=== PATIENT | male | born 1960 | race Caucasian/White ===

== ENCOUNTER → 2020-02-23 13:31 | Outpatient (BNVA) | payer OTHER, SELFPAY | PROVIDERS: Family Provider Nurse Practitioner Family; PCP Nurse Practitioner Family; Referring Provider Nurse Practitioner Family; Visit Provider Dermatology | DX: R21 Rash and other nonspecific skin eruption (principal); F17.210 Nicotine dependence, cigarettes, uncomplicated | CPT/HCPCS: 11102; 88304; 99203 ==

== ENCOUNTER → 2025-05-04 09:59 | Outpatient (BNVA) | payer OTHER, SELFPAY | PROVIDERS: Family Provider Nurse Practitioner Family; PCP Nurse Practitioner Family; Visit Provider Orthopaedic Surgery | DX: M48.02 Spinal stenosis, cervical region (principal) | CPT/HCPCS: 72050 ==

== ENCOUNTER 2025-05-09 09:07 | Outpatient (CLI) | payer OTHER, SELFPAY ==
--- NOTE | 2025-05-09 09:30 | MR_ITS ---
WS: [id number] MRI CERVICAL SPINE NONCONTRAST TECHNIQUE: Sagittal T1, T2 and STIR imaging. Axial T2, gradient, and fiesta imaging. CLINICAL INFORMATION: neck pain COMPARISON: None. FINDINGS: Straightening of the normal cervical lordosis. Moderate spondylitic changes. Disc space narrowing throughout the cervical spine. Cord signal is normal. C2-C3: Moderate LEFT bony foraminal narrowing. LEFT facet synovitis. C3-C4: Disc osteophyte complex with endplate ridging. Moderate central canal stenosis. Slight indentation of the cervical cord. Moderate to severe bony foraminal narrowing. Moderate facet arthropathy. C4-C5: Grade 1 anterolisthesis. Moderate central canal stenosis. Slight indentation on the cervical cord. Moderate LEFT greater than RIGHT bony foraminal narrowing. Moderate facet arthropathy. C5-C6: Disc osteophyte complex with central protrusion. Indentation of the cervical cord with moderate central canal stenosis. Mild to moderate bilateral bony foraminal narrowing. C6-C7: Severe LEFT greater than RIGHT bony foraminal narrowing. Spinal canal is patent. C7-T1: Moderate to severe bilateral bony foraminal narrowing. Spinal canal is patent. Visualized brain stem structures: Normal. Prevertebral soft tissues: Normal. MR/MR cervical spin wo con* [id number] IMPRESSION: 1. Straightening the normal cervical lordosis with moderate to advanced spondy litic changes. Slight anterolisthesis C4 on C5. 2. LEFT facet synovitis C2-3 with periarticular edema. 3. Moderate central canal stenosis C3-C4 C4-C5 and C5-C6 with small disc osteo phyte protrusions and slight indentation on the cervical cord. 4. Moderate LEFT C2-3 bony foraminal narrowing. 5. Moderate to severe bony foraminal narrowing bilateral C3-4, moderate bilate ral C4-5, mild to moderate bilateral C5-6, severe LEFT greater than RIGHT C6-7, and moderate bilateral C7-T1
== END 2025-05-09 09:08 | disposition home or self-care (01) ==
LOC: RAD 09:09
PROVIDERS: Family Provider Nurse Practitioner Family; PCP Nurse Practitioner Family; Visit Provider Orthopaedic Surgery
DX: M48.02 Spinal stenosis, cervical region (principal); M99.61 Osseous and subluxation stenosis of intervertebral foramina of cervical region; M43.12 Spondylolisthesis, cervical region; M99.62 Osseous and subluxation stenosis of intervertebral foramina of thoracic region
CPT/HCPCS: 72141

== ENCOUNTER 2025-05-30 10:50 | Emergency (ER) | payer MEDICARE, SELFPAY ==
--- OUTSIDE RECORDS SUMMARY | 2025-05-26 08:30 | XMS_ITS | Encounter Summary ---
Author Organization [facility], [facility] Address [address] [facility] [address] [place] [address] Phone Care Team Providers Care Rounder And Backer Name Role Phone Angelika Couch JAMARCUS Primary Care Provider [phone] Reason for Visit * Reason Comments Chronic Kidney Disease 3 mo follow up Encounter Details Date Type Department Care Team (Late st Contact Info) Description 05/26/2025 8:30 AM POLYSOMNOGRAPHIC TECH Office Visit [facility] [address] [place] [address] Mara Collins BLOCK FEEDER [address] [facility] [address] [place] [address] Stage 3b chronic kidney disease (HCC) (Primary Dx); Hypertensive chronic kidney disease with stage 1 through stage 4 chronic kidney disease, or unspecified chronic kidney disease; Acute nontraumatic kidney injury, not otherwise specified (HCC) Social History Tobacco Use Types Packs/Day Years Used Date Smoking Tobacco: Every Day Cigarettes 1 65 Passive Smoke Exposure: Current Smokeless Tobacco: Never Alcohol Use Standard Drinks/Week Comments Never 0 (1 standard drink = 0.6 oz pur e alcohol) Sex and Gender Information Value Date Recorded Sex Assigned at Not on file Legal Sex Male 11:40 AM EDT Gender Identity Not on file Sexual Orientation Not on file documented as of this encounter Last Filed Vital Signs Vital Sign Reading Time Taken Comments Blood Pressure 146/94 05/26/2025 8:38 AM POLYSOMNOGRAPHIC TECH Pulse 99 05/26/2025 8:38 AM POLYSOMNOGRAPHIC TECH Temperature - - Respiratory Rate - - Oxygen Saturation 95% 05/26/2025 8:38 AM POLYSOMNOGRAPHIC TECH Inhaled Oxygen Concentration - - Weight 98.4 kg (217 lb) 05/26/2025 8:38 AM POLYSOMNOGRAPHIC TECH Height 170.2 cm (5' 7 ) 05/26/2025 8:38 AM POLYSOMNOGRAPHIC TECH Body Mass Index 33.99 05/26/2025 8:38 AM POLYSOMNOGRAPHIC TECH documented in this encounter Functional Status * BP Answer Date of Assessment Author 146/94 05/26/2025 8:38 AM Diaz, RENT CONTROL OFFICE MANAGER * Pulse Answer Date of Assessment Author 99 05/26/2025 8:38 AM EST Michel, RENT CONTROL OFFICE MANAGER * SpO2 Answer Date of Assessment Author 95 05/26/2025 8:38 AM EST Nogueira N, RENT CONTROL OFFICE MANAGER * Height Answer Date of Assessment Author 67 05/26/2025 8:38 AM EST Nogueira N, RENT CONTROL OFFICE MANAGER * Weight Answer Date of Assessment Author 3472 05/26/2025 8:38 AM Aguilar N, RENT CONTROL OFFICE MANAGER * BMI (Calculated) Answer Date of Assessment Author 34 05/26/2025 8:38 AM Diaz, RENT CONTROL OFFICE MANAGER * BP Location Answer Date of Assessment Author Left upper arm 05/26/2025 8:38 AM EST Nogueira N, RENT CONTROL OFFICE MANAGER * BP Answer Date of Assessment Author 146/94 05/26/2025 8:38 AM Diaz, RENT CONTROL OFFICE MANAGER * Height Answer Date of Assessment Author 67 05/26/2025 8:38 AM Aguilar N, RENT CONTROL OFFICE MANAGER * Weight Answer Date of Assessment Author 3472 05/26/2025 8:38 AM Diaz, RENT CONTROL OFFICE MANAGER * BMI (Calculated) Answer Date of Assessment Author 34 05/26/2025 8:38 AM Aguilar N, RENT CONTROL OFFICE MANAGER * BP Location Answer Date of Assessment Author Left upper arm 05/26/2025 8:38 AM Diaz, RENT CONTROL OFFICE MANAGER documented as of this encounter Patient Instructions * Patient Instructions* Mara Collins NP - 05/26/2025 8:30 AM POLYSOMNOGRAPHIC TECH General chronic kidney disease education: You have chronic kidney disease, for additional information, look at the the National Kidney Foundation Internet site at www.kidney.org. Avoid pain medications called nonsteroidal anti-inflammatory drugs, which can raise blood pressure and harm your kidneys. These include ibuprofen and naproxen. Glucosamine and acetaminophen, also called Tylenol, are safe for you. Make sure to update your immunizations for influenza and 13 as well as 23 Valent pneumococcus with your primary care physician. Blood pressure monitoring education: Monitor home blood pressure values after sitting for 5 minutes with back and arm support. Keep a log. Bring your log and blood pressure cuff to your next visit. Sodium and Your CKD Diet: How to Spice Up Your Cooking What is sodium? Sodium is a mineral found naturally in foods and is the major part of table salt. What are the effects of eating too much sodium? When your kidneys are not healthy, extra sodium and fluid build up in your body. This can cause swollen ankles, puffiness, a rise in blood pressure, shortness of breath, and/or fluid around your heart and lungs. See the following table for suggestions on how to reduce sodium in your diet. LIMIT THE [AMOUNT OF... FOOD TO LIMIT BECAUSE OF THEIR HIGH SODIUM CONTENT ACCEPTABLE SUBSTITUTES SALT & SALT SEASONINGS Table salt Seasoning salt Garlic salt Onion salt Celery salt Lemon pepper Lite salt Meat tenderizer Bouillon cubes Flavor enhancers Fresh garlic, fresh onion, garlic powder, onion powder, black [pepper, lemon juice, low-sodium/salt-free seasoning blends, vinegar SALTY FOODS Barbecue sauce Steak sauce Soy sauce Teriaky sauce Oyster sauce Salted Snacks such as Crackers Potato chips [place] chips Pretzels Tortilla chips Nuts Popcorn Cadwell seeds Homemade or low- sodium sauces and salad dressings; Vinegar, dry mustard, unsalted popcorn, pretzels, tortilla or corn chips Cured Foods Ham Salt pork Vazquez Sauerkraut Pickles, pickle relish Lox & [place]mond Olives Fresh beef, veal, pork, poultry, fish, eggs [place] MEATS Hot Dogs Cold cuts, deli meats Pastrami Sausage Corned beef Spam Low-salt deli meats PROCESSED FOODS Buttermilk Cheese Canned: Soups Tomato products Vegetable juices Canned vegetables Convenience Foods such as: TV Dinners Canned raviolis [place] Macaroni & Cheese Spaghetti Frozen prepared foods Fast foods Natural cheese (1-2 oz Per week) Homemade or harry,1- sodium soups, canned food without added salt Homemade casseroles without added salt, made with fresh or raw vegetables, fresh meat, dominik, pasta, or unsalted canned vegetables Some salt or sodium is needed for body water balance. But when your kidneys lose the ability to control sodium and water balance, you may experience the following: thirst fluid gain high blood pressure discomfort during dialysis By using less sodium in your diet, you can control these problems. Hints to keep your sodium intake down Cook with herbs and spices instead of salt. (Refer to Spice Up Your Cooking section for further suggestions.) Read food labels and choose those foods low in sodium. Avoid salt substitutes and specialty low-sodium foods made with salt substitutes because they are high in potassium. When eating out, ask for meat or fish without salt. Ask for gravy or sauce on the side; these may contain large amounts of salt and should be used in small amounts . Limit use of canned, processed and frozen foods. Some information about reading labels Understanding the terms: Sodium Free - Only a trivial amount of sodium per serving. Very Low Sodium - 35 mg or less per serving. Low Sodium - 140 mg or less per serving. Reduced Sodium - Foods in which the level of sodium is reduced by 25%. Light or Lite in Sodium - Foods in which the sodium is reduced by at least 50% . Simple rule of thumb : If salt is listed in the first five ingredients, the item is probably too high in sodium to use. All food labels now have milligrams (mg) of sodium listed. Follow these steps when reading the sodiwn information on the label: 1. Know how much sodium you are allowed each day. Remember that there are 1000 milligrams (mg) in 1gram. For [id number], if your diet prescription is 2 grams of sodium , your limit is 2000 milligrams per day. Consider the sodium value or other food to be eaten during the day. 2. Look at the package label. Check the serving size. Nutrition values are expressed per irma g. How does this compare to your total daily allowance? If the sodium level is 500 mg or more per serving, the item is not a good choice. 3. Compare labels of similar products. Select the lowest sodium level for the same serving size. How to Spice Up Your Cooking Giving up salt does not mean giving up flavor. Learn to season your food with herbs and spices. Be creative and experiment for a new and exciting flavor. What kinds of spices and herbs should I use instead of salt to add flavor? Try the following spices with the foods listed. Allspice: Use with beef, fish, beets, cabbage, canots, peas, fruit. Basil: Use with beef, pork, most vegetables. Grady [place]: Use with beef, pork, most vegetables. Jaron: Use with beef, pork, green beans, cauliflower, cabbage, beets, asparagus, and in dips and marinades. Cardamom: Use with fruit and in baked goods. Melgar: Use with beef, chicken, pork, fish, green beans, carrots and in marinades. Dill: Use with beef, chicken, green beans, cabbage, carrots, peas and in dips. Shaina: Use with beef, chicken, pork, green beans, cauliflower and eggplant. Marjoram: Use with beef, chicken, pork, green beans, cauliflower and eggplant. Marychuy: Use with chicken, pork, cauliflower, peas and in marinades. Thyme: Use with beef, chicken, pork, fish, green beans, beets and carrots. John: Use with chicken, pork, eggplant and in dressing. Tarragon: Use with fish, chicken, asparagus, beets, cabbage, cauliflower and in marinades. Tips for cooking with herbs and spices Purchase spices and herbs in small amounts . When they sit on the shelf for years they lose their flavor. Use no more than ?? teaspoon of dried spice (?? of fresh) per pound of meat. Add ground spices to food about 15 minutes before the end of the cooking period. Add whole spices to food at least one hour before the end of the cooking period. Combine herbs with oil or butter, set for 30 minutes to bring out their flavor, then brush on foodswhile they cook, or brush meat with oil and sprinkle herbs one hour before coolcing. Crush dried herbs before adding to foods. Can I use salt substitutes? Caution! If you are told to limit potassium in your diet, be very cautious about using salt substitutes because most of them contain some form of potassium. Check with your doctor or dietitian beforeusing and salt substitute. [place] and create your own seasoning containing those spices that you like. If you would like to become a volunteer and find out more about what's happening where you live, contact your local [facility]. Contrast education: IV contrast can cause temporary, and occasionally permanent, kidney failure. Most cases improve on their own, but occasionally people are left on dialysis. If you have IV contrast, you should get IV fluid before and after. You should also have labs checked 2 days after the test to monitor kidney function. No NSAIDS - Do not take non-steroidal anti-inflammatory medications (NSAIDS) such as Ibuprofen (Advil, Motrin, etc), Naproxen (Aleve, etc), Celecoxib (Celebrex) or Ketoprofen. These common arthritis medications can cause permanent kidney damage or worsen your kidney damage. For mild occasional pain, Acetaminophen (Tylenol, etc) is safe for your kidneys. documented in this encounter Progress Notes * Mara Collins NP - 05/26/2025 8:30 AM CSTSummary: follow up Images from the original note were not included. [facility] Chief Complaint: Follow up on CKD Primary Server Support Technician: Anjum Matamoros MD PCP: Angelika Couch FNP Nephrology Problem List: Chronic kidney disease stage 3bA3- Cr 1.4-1.9 2023. Renal US 2023 simple cyst on left. UA neg for blood. SPEP without M spike in 02/22. PATRICIA 09/2023, creatinine up to 2.9, states hypotensive and dehydrated Hypertension long standing-periods of hypotension Chronic tobacco use, 1ppd for many years Atopic dermatitis, he is on Rinvoq-on hold 05/25 due to acute kidney injury. History of Present Illness: Gustavo Silvestre is a 64 y.o. male here today for follow up on CKD and associated medical conditions. He was last seen in January 2025 with GFR of 46 and now at 20. Received labs last week with cr up to 3.25 with BUN of 64. Cr over the past year has been 1.4-2.0. We had him hold spironolactone and lisinopril. He has been having severe neck pain; PCP working up with CT/MRI. CT was without contrast.He is scheduled to have follow up next week. He is not using NSAID's. He did have several doses of prednisone. He states has not been eating or drinking well due to pain. Laid in bed for 4 days and did not eat or drink. UOP was reduced last week. He reports better this week. Did not pay attention to color. Dermatology holding Rinvoq due to acute kidney injury as well. He had repeat labs on Thursday, results not yet back. BP is mildly elevated today but had been running lower at home when we spoke with last week. He still smokes 1 PPD, not ready to quit. Weight is stable. No increase in LE edema or shortness of breath since holding aldactone. No difficulty voiding. Past Medical History: Diagnosis Date Anxiety Benign prostatic hyperplasia without lower urinary tract symptom Chronic airway obstruction, not elsewhere classified (HCC) Essential hypertension Osteoarthrosis, unspecified whether generalized or localized, involving unspecified site Social History Socioeconomic History Marital status: Single Spouse name: Not on file Number of children: Not on file Years of education: Not on file Highest education level: Not on file Occupational History Not on file Tobacco Use Smoking status: Every Day Current packs/day: 1.00 Average packs/day: 1 pack/day for 65.0 years (65.0 ttl pk-yrs) Types: Cigarettes Passive exposure: Current Smokeless tobacco: Never Vaping Use Vaping status: Never Used Substance and Sexual Activity Alcohol use: Never Drug use: Never Sexual activity: Not on file Other Topics Concern Lives Alone No Spouse No Significant Other No Family Member Yes Comment: Sister Hydraulic Miner No Assisted Living Facility No Impairment No Memory Deficit No Hearing Loss No Poor Vision or Blindness No Limited Mobility No Transportation Challenges No Social History Narrative Not on file Social Drivers of Health Financial Resource Strain: Not on file Food Insecurity: Not on file Transportation Needs: Not on file Physical Activity: Not on file Stress: Not on file Social Connections: Not on file Intimate Partner Violence: Not on file Housing Stability: Not on file Family History Problem Relation Age of Onset Hypertension Mother Hypertension Father Throat cancer Father Review of Systems: Constitutional: Negative for chills, fever and malaise/fatigue. Respiratory: Positive for cough (intermittent) and shortness of breath (intermittent, about the same as always ). Cardiovascular: Negative for chest pain and leg swelling. Gastrointestinal: Negative for abdominal pain, diarrhea, nausea, vomiting and poor appetite. Genitourinary: Negative for dysuria, flank pain and hematuria. Musculoskeletal: Positive for neck pain. Negative for myalgias. Skin: Negative for rash. Neurological: Negative for dizziness and focal weakness. Psychiatric/Behavioral: The patient is not nervous/anxious. No Known Allergies Current Outpatient Medications: albuterol HFA (PROVENTIL HFA;VENTOLIN HFA) 108 (90 Base) MCG/ACT inhaler, 2 PUFFS INHALED EVERY 4 HOURS NEEDED, Disp: , Rfl: ALPRAZolam (XANAX) 1 MG tablet, Take 1 mg by mouth in the morning and 1 mg at noon and 1 mg in the evening., Disp: , Rfl: budesonide-formoterol (SYMBICORT) 160-4.5 MCG/ACT inhaler, Inhale 2 puffs in the morning and 2 puffs before bedtime. Rinse mouth with water after use to reduce aftertaste and incidence of candidiasis. Do not swallow., Disp: , Rfl: rosuvastatin (CRESTOR) 5 MG tablet, Take 5 mg by mouth 1 (one) time each day, Disp: , Rfl: tamsulosin (FLOMAX) 0.4 MG 24 hr capsule, TAKE 1 CAPSULE (0.4 MG) BY MOUTH DAILY, Disp: , Rfl: lisinopril 40 MG tablet, TAKE 1 TABLET (40 MG) BY MOUTH DAILY (Patient not taking: Reported on 05/26/2025), Disp: , Rfl: spironolactone (ALDACTONE) 50 MG tablet, Take 1 tablet (50 mg total) by mouth 1 (one) time each day(Patient not taking: Reported on 05/26/2025), Disp: 90 tablet, Rfl: 3 Vital Signs: Patient Vitals for the past 24 hrs: BP Pulse SpO2 Height Weight 05/26/25 0838 146/94 99 95 % 5' 7 (1.702 m) 217 lb (98.4 kg) Physical Exam Constitutional: He is oriented to person, place, and time. He does not appear ill. No distress. HENT: Head: Normocephalic and atraumatic. Eyes: No scleral icterus. Cardiovascular: Normal rate, regular rhythm and normal heart sounds. Pulmonary/Chest: Effort normal. No respiratory distress. Abdominal: Normal appearance. Musculoskeletal: General: No swelling. Neurological: He is alert and oriented to person, place, and time. Skin: Skin is warm and dry. No pallor. Psychiatric: His behavior is normal. Nursing note and vitals reviewed. Labs: Chemistry Lab Units 05/16/25 0000 02/08/25 0907 01/23/25 0000 11/14/24 0939 11/07/24 0000 10/20/24 0000 07/18/24 0000 07/08/24 0000 06/21/24 0000 03/15/24 0000 01/18/24 0826 01/18/24 0826 CREATININE mg/dL 3.25 1.53 1.63 1.76 1.53 2.10 1.43 2.03 1.50 1.43 -- 1.92 BUN mg/dL 62 24 31 29.0 21 49 16 32 18 20 -- 30 POTASSIUM mEq/L 4.5 4.7 4.1 4.2 4.4 3.9 4.0 4.7 3.7 4.3 -- 3.4 SODIUM mEq/L 136 138 136 139 139 139 140 138 142 139 -- 140 CO2 mmol/L 28 31 30 30.0 33 30 33 29 35 33 -- 30 CHLORIDE 100 98 97 98.0 98 100 99 100 99 99 -- 97 ALBUMIN g/dL 4.6 -- -- -- -- 4.7 -- -- 4.4 4.5 4.5 -- 4.1 EGFRNAFR 20 50 -- -- 50 34 54 -- 51 54 < > -- EGFR -- -- 46 42.0 -- -- -- 36 -- -- -- 38 WBC AUTO K/uL 9.8 -- 8.0 -- -- 6.7 -- -- 6.6 5.8 -- 6.0 HEMATOCRIT % 40.5 -- 46.6 -- -- 42.2 -- -- 46.2 44.9 -- 43.9 HEMOGLOBIN g/dL 13.4 -- 14.9 -- -- 13.3 -- -- 14.8 14.4 -- 14.0 PLATELETS AUTO 271 -- 233 -- -- 212 -- -- 227 250 -- 295 < > = values in this interval not displayed. Bone Mineral Lab Units 05/16/25 0000 02/08/25 0907 01/23/25 0000 11/14/24 0939 11/07/24 0000 10/20/24 0000 07/08/24 0000 06/21/24 0000 03/15/24 0000 01/18/24 0826 CALCIUM mg/dL 9.1 9.6 9.8 9.8 9.5 9.2 < > 9.0 9.5 9.4 8.9 PHOSPHORUS mg/dL -- -- -- -- -- 3.5 -- 2.7 3.0 -- ALK PHOS U/L 78 -- -- -- -- -- -- -- -- 86 PTH pg/mL 65 -- -- -- -- 61 -- 59 56 73 VIT D 25 HYDROXY ng/mL -- -- -- -- -- -- -- 49 -- 25 < > = values in this interval not displayed. No lab exists for component: IRON SATURATION Urine Lab Units 03/15/24 0000 PROT/CREAT RATIO UR mg/g creat 252 1. Stage 3b chronic kidney disease (HCC) Renal function panel, Urine albumin / creatinine ratio, Renal function panel, Urine albumin / creatinine ratio 2. Hypertensive chronic kidney disease with stage 1 through stage 4 chronic kidney disease, or unspecified chronic kidney disease 3. 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 Had repeat lab 05/22, results pending. Did not have urine albumin/cr ratio this visit. BP a little higher, allowing for permissive hypertension with acute kidney injury. Reviewed labs and trend with him today Likely will need follow up lab depending on results from 05/22. Continue to limit salt in diet, avoid NSAID's and hydrate well Follow up 3 mos with RFP and urine albumin/cr ratio Hypertension, controlled BP goal less than 140/90 Allowing for permissive hypertension with acute kidney injury. Lisinopril and aldactone on hold. Continue low sodium diet. Tobacco dependency syndrome Not ready to quit. Aware of adverse effects on overall health. Disposition: Return in 3 months (on 08/24/2025). Patient is compliant with medical recommendations and therapy. Thank you for allowing me to participate in the care of this patient. Please do not hesitate to contact me with any questions or concerns. Mara Collins NP [facility] documented in this encounter Plan of Treatment Upcoming Encounters Date Type Department Care Team (Late st Contact Info) Description 08/24/2025 10:00 AM CDT Office Visit [facility] [address] [place], [place] [address] Mara Collins NP [address] [phone] Scheduled Orders Name Type Priority Associated Diagnoses Orde r Schedule Renal function panel Lab Routine Stage 3b chronic kidney disease (HCC) Expected: 08/24/2025 (Approximate), Expires: 06/26/2026 Urine albumin / creatinine ratio Lab Routine Stage 3b chronic kidney disease (HCC) Expected: 08/24/2025 (Approximate), Expires: 06/26/2026 documented as of this encounter Visit Diagnoses Diagnosis Stage 3b chronic kidney disease (HCC)- Primary Hypertensive chronic kidney disease with stage 1 through stage 4 chronic kidney disease, or unspecified chronic kidney disease Acute nontraumatic kidney injury, not otherwise specified (HCC) documented in this encounter Care Teams Rounder And Backer Relationship Specialty Start Date End Date Angelika Couch FNP [address], [place] [address] PCP - General Family Medicine 06/28/24 documented as of this encounter
[2025-05-30 10:55] VITALS: BP 176/88; PULSE 94; RESP 17; TEMP 36.8; O2SAT 95; BMI 32.5
--- NOTE | 2025-05-30 11:08 | ECG_ITS ---
[facility]: 2025-05-30 Pat Name: Alfredo Hernandez Department: Room: Gender: Male Network Engineer Administrator: : 1960 Requested By: Medhat Marinelli Order Number: [id number] MD: Sánchez Toribio M.D. Measurements Intervals [place] Rate: 83 P: 38 KS: 153 QRS: -13 QRSD: 94 T: 42 QT: 350 QTc: 413 Interpretive Statements SINUS RHYTHM WITH OCCASIONAL SUPRAVENTRICULAR PREMATURE COMPLEXES No previous ECG available for comparison Electronically Signed On 06-01-2025 16:11:03 SIDE BOSS by Sánchez Toribio M.D. [id number]
--- NOTE | 2025-05-30 11:16 | XR_ITS ---
WS: [id number] Portable AP upright chest, 05/30/2025 Clinical Data: dyspnea/cough Comparison: None. Findings: There is a minimal peripheral right midlung opacity which could represent atelectasis and/or minimal pneumonia. No nodules, masses or effusions are seen. The heart is enlarged. The pulmonary vascularity is not increased. No pneumothorax is seen. There is right costophrenic angle blunting probably from pleural reaction. There is a large right cardiophrenic fat pad or cyst. The aortic arch shows mild tortuosity. There is a slight dextroscoliosis of the thoracic spine. There are monitor leads on the chest wall. XR/XR chest 1V portable [id number] Impression: 1. Minimal patchy peripheral right lung opacity which could represent minimal p neumonia and/or atelectasis. 2. Blunting of the right costophrenic angle which is probably pleural reaction. 3. Cardiomegaly and atherosclerosis.
--- OUTSIDE RECORDS SUMMARY | 2025-05-30 11:18 | XMS_ITS | Encounter Summary ---
Author Organization [facility] Address [address] [facility] [address] [place] [address] Phone Care Team Providers Care Director Of Field Sales Name Role Phone Angelika Couch Primary Care Provider [phone] Encounter Details Date Type Department Care Team (Late st Contact Info) Description 11/24/2023 Orders Only [facility] [address] [facility] [address] [place] [address] Chronic kidney disease, not otherwise specified Social History Tobacco Use Types Packs/Day Years Used Date Smoking Tobacco: Never Assessed Sex and Gender Information Value Date Recorded Sex Assigned at Not on file Legal Sex Male 11:40 AM EDT Gender Identity Not on file Sexual Orientation Not on file documented as of this encounter Plan of Treatment Upcoming Encounters Date Type Department Care Team (Late st Contact Info) Description 08/24/2025 10:00 AM CDT Office Visit [facility] [address] [place], [place] [id number] Mara Collins NP [address] [facility] [address] [place] [address] documented as of this encounter Visit Diagnoses Diagnosis Chronic kidney disease, not otherwise specified documented in this encounter Care Teams Director Of Field Sales Relationship Specialty Start Date End Date Angelika Couch FNP [address], [place] [address] PCP - General Family Medicine 06/28/24 documented as of this encounter
--- OUTSIDE RECORDS SUMMARY | 2025-05-30 11:18 | XMS_ITS | Encounter Summary ---
Author Organization [facility] Address [address] [place] [address] Care Team Providers Care Couturiere Name Role Phone Unavailable Primary Care Provider Unavailabl e Encounter Details Date Type Department Care Team (Latest Contact Info) Description 04/02/2001 Outpatient Historical [facility] Medicine [address] [address] Alexis Dial MD [address] [place] [address] PNEUMONIA, ORGANISM NOS (Primary Dx) Social History Tobacco Use Types Packs/Day Years Used Date Smoking Tobacco: Never Assessed Sex and Gender Information Value Date Recorded Sex Assigned at Not on file 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
--- OUTSIDE RECORDS SUMMARY | 2025-05-30 11:18 | XMS_ITS | Encounter Summary ---
Author Organization [facility] Address [address] [place] [address] Care Team Providers Care Garage Door Service Technician Name Role Phone Unavailable Primary Care Provider Unavailabl e Encounter Details Date Type Department Care Team (Latest Contact Info) Description 07/19/2001 Outpatient Historical [address] [address] Yanely Matson MD [address] [place] [address], [address] ALLERGIC RHINITIS NOS (Primary Dx); INSOMNIA NEC; TOBACCO USE DISORDER Social History Tobacco Use Types Packs/Day Years Used Date Smoking Tobacco: Never Assessed Sex and Gender Information Value Date Recorded Sex Assigned at Not on file 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
--- OUTSIDE RECORDS SUMMARY | 2025-05-30 11:18 | XMS_ITS | Clinical Summary ---
Author Organization [facility] Address [address] [address] Lu: Epic Prelude ADT [place] [address] Care Team Providers Care Residential Leasing Agent Name Role Phone Unavailable Primary Care Provider Unavailabl e Allergies No known active allergies Active Problems Problem Noted Date Diagnosed Date 'chbid-wku-uejgo' infant with signs of mal nutrition 07/18/2009 HTN (hypertension) 06/11/2009 Family History Medical History Relation Name Comments Diabetes Father Hypertension Father Stroke Father Hypertension Mother Ovarian Cancer Mother Relation Name Status Comments Father Mother Social History Tobacco Use Types Packs/Day Years Used Date Smoking Tobacco: Every Day Cigarettes Alcohol Use Standard Drinks/Week Comments No 0 (1 standard drink = 0.6 oz pur e alcohol) Sex and Gender Information Value Date Recorded Sex Assigned at Not on file 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 Gender Identity Not on file Sexual Orientation Not on file Plan of Treatment Health Maintenance Due Date Last Done Comments Pre-Diabetes and Diabetes Screening 1960 DTAP/TDAP/TD VACCINES (1 - Tdap) 1977 PNEUMOCOCCAL VACCINE 50+ YEARS (1 of 2 - PCV) 11/07/18 78 COLORECTAL SCREENING 11/08/2003 Colorectal Cancer Screening 11/08/2003 FIT-DNA Q 3 years 11/08/2003 FIT/FOBT Q 1 year 11/08/2003 Flex Sig/CT Colonography Q 5 years 11/08/2003 ZOSTER VACCINE (1 of 2) 2008 INFLUENZA VACCINE (#1) 2024 RSV VACCINE (60+ or ) (1 - 1-dose 75+ series) 2033 Insurance [facility] [id number]
--- OUTSIDE RECORDS SUMMARY | 2025-05-30 11:18 | XMS_ITS | Clinical Summary ---
Author Organization [facility] Address [address] [place] [address] Care Team Providers Care Special Population Paraprofessional Name Role Phone Unavailable Primary Care Provider Unavailabl e Allergies No known active allergies Medications naproxen (NAPROSYN) 500 mg Oral tablet Take 1 Tab by mouth 2 times daily with meals. 60 Tab 1 0 Active Amlodipine-Valsarta n (EXFORGE) 10-320 mg Oral Tab Take 1 Tab by mouth daily. 14 Tab 1 0 Active tramadol (ULTRAM) 50 mg Oral tabletIndications:D isplacement of lumbar intervertebral disc without myelopathy,Sprain of lumbar region Take 1 Tab by mouth every 6 hours as needed for Pain. severe 60 Tab 0 0 Active hydrocodone-acetami nophen (NORCO) 10-325 mg Oral Tab Take 1 Tab by mouth every 8 hours as needed for Pain. 50 Tab 0 0 Active escitalopram (LEXAPRO) 20 mg Oral tablet Take 1 Tab by mouth daily. 30 Tab 3 0 Active cyclobenzaprine (FLEXERIL) 10 mg Oral tablet Take 1 Tab by mouth 3 times daily as needed for Spasm. 60 Tab 0 0 Active nebivolol (BYSTOLIC) 10 mg Oral Tab Take 1 Tab by mouth daily. 30 Tab 0 0 Active Active Problems Problem Noted Date Diagnosed Date 'Toahy-wcu-nbyhi' with signs of mal nutrition 07/18/2009 HTN [...] on file Legal Sex Male 4:31 AM SPORTS DOCTOR Gender Identity Not on file Sexual Orientation Not on file Last Filed Vital Signs Vital Sign Reading Time Taken Comments Blood Pressure 164/92 08/27/2009 8:35 AM CDT Pulse 80 08/27/2009 8:35 AM CDT Temperature 36.9 C (98.4 F) 08/27/2009 8:35 AM CDT Respiratory Rate 20 08/27/2009 8:35 AM CDT Oxygen Saturation 96% 07/18/2009 8:46 AM SPORTS DOCTOR Inhaled Oxygen Concentration - - Weight 96.6 kg (213 lb) 08/27/2009 8:35 AM CDT Height 172.7 cm (5' 8 ) 08/01/2009 12:20 PM SPORTS DOCTOR Body Mass Index 32.39 08/01/2009 12:20 PM SPORTS DOCTOR Plan of Treatment Health Maintenance Due Date Last Done Comments DTAP/TDAP/TD VACCINES (1 - Tdap) 1977 PNEUMOCOCCAL VACCINE 50+ YEARS (1 of 2 - PCV) 11/07/18 78 COLORECTAL SCREENING 11/08/2003 Colorectal Cancer Screening 11/08/2003 FIT-DNA Q 3 years 11/08/2003 FIT/FOBT Q 1 year 11/08/2003 Flex Sig/CT Colonography Q 5 years 11/08/2003 ZOSTER VACCINE (1 of 2) 2008 INFLUENZA VACCINE (#1) 2024 RSV VACCINE (60+ or ) (1 - 1-dose 75+ series) 2033 Insurance MEDICARE RAILROAD
--- OUTSIDE RECORDS SUMMARY | 2025-05-30 11:18 | XMS_ITS | Encounter Summary ---
Author Organization [facility] Address [address] [place] [address] Care Team Providers Care Roofer Gypsum Name Role Phone Unavailable Primary Care Provider Unavailabl e Encounter Details Date Type Department Care Team (Latest Contact Info) Description 09/13/2001 Outpatient Historical [facility] [place] [address], [place] [phone] Lior Chu MD [address], [place] [phone] FX TIBIA NOS-CLOSED (Primary Dx) Social History Tobacco Use Types Packs/Day Years Used Date Smoking Tobacco: Never Assessed Sex and Gender Information Value Date Recorded Sex Assigned at Not on file 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
--- OUTSIDE RECORDS SUMMARY | 2025-05-30 11:18 | XMS_ITS | Encounter Summary ---
Author Organization [facility] Address [address] [place] [address] Care Team Providers Care Emergency Medicine Physician Name Role Phone Unavailable Primary Care Provider Unavailabl e Encounter Details Date Type Department Care Team (Latest Contact Info) Description 10/18/2004 Outpatient Historical [facility] Medicine [address] [address] Helen Lai MD [address] [place] [address] SPRAIN OF ANKLE NOS (Primary Dx) Social History Tobacco Use Types Packs/Day Years Used Date Smoking Tobacco: Never Assessed Sex and Gender Information Value Date Recorded Sex Assigned at Not on file 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
--- OUTSIDE RECORDS SUMMARY | 2025-05-30 11:18 | XMS_ITS | Encounter Summary ---
Author Organization [facility] Address [address] [place] [address] Care Team Providers Care Hunting Sales Associate Name Role Phone Unavailable Primary Care Provider Unavailabl e Encounter Details Date Type Department Care Team (Latest Contact Info) Description 04/14/2001 Outpatient Historical 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
--- OUTSIDE RECORDS SUMMARY | 2025-05-30 11:18 | XMS_ITS | Clinical Summary ---
Author Organization [facility] Address [address] [place] [address] Care Team Providers Care Data Analytics Chief Scientist Name Role Phone Angelika Couch JAMARCUS Primary Care Provider [phone] Allergies No known active allergies Medications albuterol HFA (PROVENTIL HFA;VENTOLIN HFA) 108 (90 Base) MCG/ACT inhaler 2 PUFFS INHALED EVERY 4 HOURS NEEDED 12/28/19 24 Active ALPRAZolam (XANAX) 1 MG tablet Take 1 mg by mouth in the morning and 1 mg at noon and 1 mg in the evening. 12/31/19 24 Active lisinopril 40 MG tablet TAKE 1 TABLET (40 MG) BY MOUTH DAILY 12/01/19 24 Active tamsulosin (FLOMAX) 0.4 MG 24 hr capsule TAKE 1 CAPSULE (0.4 MG) BY MOUTH DAILY 12/09/19 24 Active rosuvastatin (CRESTOR) 5 MG tablet Take 5 mg by mouth 1 (one) time each day 09/21/19 25 Active budesonide-fo rmoterol (SYMBICORT) 160-4.5 MCG/ACT inhaler Inhale 2 puffs in the morning and 2 puffs before bedtime. Rinse mouth with water after use to reduce aftertaste and incidence of candidiasis. Do not swallow. Active spironolacton e (ALDACTONE) 50 MG tabletIndicat ions:Stage 3b chronic kidney disease (HCC),Microal buminuria Take 1 tablet (50 mg total) by mouth 1 (one) time each day 90 tablet 3 05/04/20 25 Active Additional Information Patient not taking.Reason: on hold since 05/17/25, Reported on 05/26/2025 Upadacitinib ER (Rinvoq) 15 MG tablet sustained-rel ease 24 hour Take 1 tablet by mouth 1 (one) time each day 025 Discontinued(Th erapy completed) spironolacton e (Aldactone) 50 MG tabletIndicat ions:Stage 3b chronic kidney disease (HCC),Microal buminuria Take 1 tablet (50 mg total) by mouth 1 (one) time each day 90 tablet 02/03/20 25 025 Discontinued predniSONE (DELTASONE) 20 MG tablet Take 20 mg by mouth 1 (one) time each day 05/16/20 025 Discontinued Active Problems Problem Noted Date Diagnosed Date Chronic kidney disease stage 3B 06/28/2024 Hypokalemia 06/28/2024 Microalbuminuria 06/28/2024 Hypertensive chronic kidney disease with stage 1 through stage 4 chronic kidney disease, or unspecified chronic kidney disease 06/11/2009 Encounters Date Type Department Care Team Description 05/26/2025 8:30 AM CHECK PILOT Office Visit [facility] [address] [place], [place] [address] Mara Collins NP Stage 3b chronic kidney disease (HCC) (Primary Dx); Hypertensive chronic kidney disease with stage 1 through stage 4 chronic kidney disease, or unspecified chronic kidney disease; Acute nontraumatic kidney injury, not otherwise specified (HCC) 05/17/2025 Orders Only [facility] [address] [place] [phone] Cassie Goff MA 05/17/2025 Documentation Only [facility] [address] [place] [phone] Betzy Mendiola CMA 05/17/2025 Results Follow-Up [facility] [address] [place] [phone] Jessica Rinaldi MA 05/17/2025 Documentation Only [facility] [address] [place] [address] Opal Goff MA 05/04/2025 Refill [facility] [address] [place] [address] Mara Collins NP Stage 3b chronic kidney disease (HCC); Microalbuminuria from Last 3 Months Family History Medical History Relation Comments Hypertension Father Throat cancer Father Hypertension Mother Relation Status Comments Father Mother Social History Tobacco Use Types Packs/Day Years Used Date Smoking Tobacco: Every Day Cigarettes 1 65 Passive Smoke Exposure: Current Smokeless Tobacco: Never Tobacco Cessation:Ready to Q uit: Not Asked; Counseling Given: Not Answered Alcohol Use Standard Drinks/Week Comments Never 0 (1 standard drink = 0.6 oz pur e alcohol) Sex and Gender Information Value Date Recorded Sex Assigned at Not on file Legal Sex Male 11:40 AM EDT Gender Identity Not on file Sexual Orientation Not on file Last Filed Vital Signs Vital Sign Reading Time Taken Comments Blood Pressure 146/94 05/26/2025 8:38 AM CHECK PILOT Pulse 99 05/26/2025 8:38 AM CHECK PILOT Temperature - - Respiratory Rate - - Oxygen Saturation 95% 05/26/2025 8:38 AM CHECK PILOT Inhaled Oxygen Concentration - - Weight 98.4 kg (217 lb) 05/26/2025 8:38 AM CHECK PILOT Height 170.2 cm (5' 7 ) 05/26/2025 8:38 AM CHECK PILOT Body Mass Index 33.99 05/26/2025 8:38 AM CHECK PILOT Plan of Treatment Upcoming Encounters Date Type Department Care Team (Late st Contact Info) Description 08/24/2025 10:00 AM CDT Office Visit [facility] [address] [place] [address] Mara Collins NP [address] [phone] Health Maintenance Due Date Last Done Comments Pneumococcal Vaccine: 50+ Ye ars (1 of 2 - PCV) 1977 Colorectal Cancer Screening: Annual FOBT 11/08/2007 Colorectal Cancer Screening: Colonoscopy 11/08/2007 Colorectal Cancer Screening: Sigmoidoscopy 11/08/2007 Influenza Vaccine (#1) 2025 Hepatitis B Vaccine Aged Out No longe r eligible based on patient's age to complete this topic Procedures Procedure Name Priority Date/Time Associated Diagnosis Comments PTH, INTACT (EXTERNAL LAB ENTRY) Routine 05/16/2025 CBC (INCLUDES DIFF/PLT) (EXTERNAL LAB ENTRY) Routine 05/16/2025 COMPREHENSIVE METABOLIC PANEL (CMP) (EXTERNAL LAB ENTRY) Routine 05/16/2025 from Last 3 Months Results * Comprehensive Metabolic Panel (CMP) (05/16/2025) Pathologist [facility] Glucose 106 mg/dL BUN 62 mg/dL Creatinine 3.25 mg/dL Sodium 136 mEq/L Potassium 4.5 mEq/L Chloride 100 Carbon Dioxide 28 mmol/L Calcium 9.1 mg/dL Albumin (Blood) 4.6 g/dL AST (SGOT) 18 U/L ALT (SGPT) 19 U/L Alkaline Phosphatase 78 U/L Total Bilirubin 0.50 MG/DL eGFR Non-Afr Guamanian 20 Total Protein, Serum 7.7 Globulin, Total 3.1 g/dL A/G Ratio 1.5 Blood 05/16/2025 Opal Pineda MA - 05/17/2025 Courtesy [employer] [place] [address] [address] [facility] [address] Decorating Equipment Setter: Galileo Fraga DO MPH CLIA: [id number] [facility] External Provider LAB BLOOD ORDERABLES Final Result * CBC (Includes Diff/Plt) (External Lab) (05/16/2025) [facility] WBC 9.8 K/uL Red Blood Cell Count 4.48 Hemoglobin 13.4 g/dL Hematocrit 40.5 % MCV 90.4 MCH 29.9 MCHC 33.1 RDW 15.6 Platelet Count 271 MPV 10.9 Absolute Neutrophils 6,831 Absolute Lymphocytes 2,078 Absolute Monocytes 784 Absolute Eosinophils 88 Absolute Basophils 20 Neutrophils 69.7 K/uL Lymphocytes 21.2 Monocytes 8.0 Eosinophils 0.9 Basophils 0.2 Blood 05/16/2025 Opal Pineda MA - 05/17/2025 Courtesy [facility] [place] [address] [place] [address] Decorating Equipment Setter: Galileo Fraga DO MPH CLIA: [id number] [facility] External Provider LAB BLOOD ORDERABLES Final Result * PTH, Intact (External Lab) (05/16/2025) Parathyroid Hormone, Intact 65 pg/mL Blood 05/16/2025 Narrative Cassie Goff MA - 05/16/2025 [facility] [id number] [facility] External Provider LAB BLOOD ORDERABLES Final Result from Last 3 Months Insurance UHC Medicare Care Teams Data Analytics Chief Scientist Relationship Specialty Start Date End Date Angelika Couch FNP [address] [place] [address] PCP - General Family Medicine 06/28/24
[2025-05-30 11:33] LABS: Hematocrit 32.1 % (37-53); Hemoglobin 9.80 g/dL (11.27-16.99); Mean Corpuscular HGB Conc 30.5 g/dL (30-55); Mean Corpuscular Hemoglobin 28.9 pg (27-33); Mean Corpuscular Volume 94.7 fl (82-101); Nucleated Red Blood Cells % 0 %; Platelet Count 191 10^3/cmm (157-399); Red Blood Count 3.39 10^6/uL (3.85-5.65); White Blood Count 6.67 10^3/uL (3.29-11.43)
[2025-05-30 11:55] LABS: Alanine Aminotransferase 26 U/L (0-41); Albumin Level 3.8 g/dL (3.5-5.2); Alkaline Phosphatase 77 U/L (40-130); Anion Gap 15.1 (5-19); Aspartate Amino Transferase 18 U/L (0-40); Blood Urea Nitrogen 11 mg/dL (8-23); Calcium 8.9 mg/dL (8.5-10.5); Carbon Dioxide 29 mmol/L (22-29); Chloride 99 mmol/L (98-107); Creatinine Clr Calc Pharmacy 70.5193; Globulin 3.3 g/dL (1.3-4.6); Glucose 97 mg/dL (65-115); Osmolality Calculated 287 mOsm/kg (285-295); Potassium 4.1 mmol/L (3.5-5.1); Sodium 139 mmol/L (136-145); Total Protein 7.1 g/dL (6.6-8.7)
--- NOTE | 2025-05-30 12:06 | W.ED.SOB ---
HPI - SOB/Dyspnea General: Chief Complaint: Shortness of Breath/Dyspnea Stated Complaint: rapid response, high bp Time Seen by Provider: 05/30/25 11:16 History of Present Illness: HPI Narrative: 64-year-old male presents emergency room with a complaint of elevated blood pressure shortness of breath. Patient was at the management he was noted with markedly elevated blood pressure report chest pain 10 of 10 he denies any chest pain or pressure. He states is all in his neck this been a chronic problem. Patient has a history of COPD is noted to have some pursed lipped breathing on presentation here. Initial blood pressure here was 176/88 on repeat monitoring at 132/76 with patient in reclined position. Associated symptoms: Deny abdominal pain, chest pain or fever(s) Related Data Home Medications ?Medication ?Instructions ?Recorded ?Confirmed albuterol sulfate 0.63 mg/3 mL 0.63 mg inhalation QID PRN 02/23/20 05/16/25 solution for nebulization alprazolam 1 mg tablet (Xanax) 1 mg PO TID PRN 02/23/20 05/16/25 amlodipine 10 mg tablet 10 mg PO DAILY 02/23/20 05/16/25 budesonide-formoterol HFA 80 2 puff inhalation BID 02/23/20 05/16/25 mcg-4.5 mcg/actuation aerosol inhaler (Symbicort) lisinopril 40 mg tablet 40 mg PO DAILY 02/23/20 05/16/25 Previous Rx's ?Medication ?Instructions ?Recorded mupirocin 2 % topical ointment 1 applic topical BID #22 grams 02/23/20 triamcinolone acetonide 0.1 % 1 applic topical BID #453.6 grams 02/23/20 topical ointment mupirocin 2 % topical ointment 1 applic topical BID #22 grams 03/22/20 betamethasone dipropionate 0.05 % 1 applic topical BID #45 grams 06/12/20 topical ointment doxycycline hyclate 100 mg capsule 100 mg PO BID 10 days #20 caps 05/30/25 prednisone 20 mg tablet 20 mg PO TID #15 tabs 05/30/25 Allergies Allergy/AdvReac Type Severity Reaction Status Date / Time No Known Allergies Allergy Verified 05/30/25 11:02 Review of Systems Const: Denies: fever(s) or chills Card: Denies: chest pain Resp: Denies: dyspnea GI: Denies: abdominal pain : Denies: dysuria, urinary frequency or urinary urgency Musc: Denies: neck pain or back pain Skin/Breast: Denies: rash PFSH ED PFSH: Medical History HTN (hypertension) COPD (chronic obstructive pulmonary disease) Family History Other Cancer Hypertension Social History Smoking and tobacco/nicotine status: current every day tobacco/nicotine user Alcohol intake: never Physical Exam Const: GENERAL APPEARANCE: cooperative ORIENTATION/CONSCIOUSNESS: Yes awake, Yes oriented to person, Yes oriented to place and Yes oriented to time HENMT: COMMON NORMALS: normocephalic, atraumatic and hearing grossly normal bilaterally HEAD & SCALP: normocephalic and atraumatic Resp: COMMON NORMALS: normal respiratory effort, No retractions, No use of accessory muscles and clear to auscultation bilaterally AUSCULTATION: clear to auscultation bilaterally Cardio: COMMON NORMALS: regular rate, regular rhythm and No murmurs present (Cardio) RATE: regular rate RHYTHM: regular rhythm GI: COMMON NORMALS: Soft to palpation and No hepatosplenomegaly present AUSCULTATION: Yes normoactive bowel sounds PALPATION: Yes Soft to palpation, No Tenderness to palpation present (GI), No Guarding due to palpation present (GI) and Yes No hepatosplenomegaly present Extremity: COMMON NORMALS: normal to inspection, capillary refill normal, no clubbing, cyanosis or edema, no calf tenderness and no pedal edema Neuro: SENSORIUM/ORIENTATION: Yes oriented to person, Yes oriented to place and Yes oriented to time Skin: COMMON NORMALS: no rashes or lesions noted GENERAL SKIN EXAM: no rashes or lesions noted Course Vital Signs: Vital signs: Vital Signs Temperature 98.2 F 05/30/25 10:55 Pulse Rate 94 05/30/25 13:51 Respiratory Rate 18 05/30/25 12:52 Blood Pressure 160/82 05/30/25 13:51 Pulse Oximetry 91 05/30/25 13:51 Oxygen Delivery Me thod Room Air 05/30/25 12:52 MDM - SOB/Dyspnea Medical Decision Making Labs and imaging reviewed no leukocytosis hemoglobin is 9.8. MCV is normal he has not had any obvious bleeding hematochezia melena hematemesis or coffee-ground emesis.'s chemistries are normal with sodium 139 potassium 4.1 anion gap 15 creatinine 1.2 BUN 11. After nebulizer treatment he is feeling somewhat better. Chest x-ray shows mild infiltrate at the bases. Will discharge patient home on steroid taper continue aggressive albuterol use also add doxycycline, follow-up with pain clinic for long-term control of his neck pain return if he has further problems. Medical Records I reviewed the patient's medical records. Lab Data I reviewed the patient's lab results. 05/30/25 11:27 05/30/25 11:27 Labs/Radiology: Radiology Impressions Chest X-Ray 05/30/25 11:16 Impression: 1. Minimal patchy peripheral right lung opacity which could represent minimal pneumonia and/or atelectasis. 2. Blunting of the right costophrenic angle which is probably pleural reaction. 3. Cardiomegaly and atherosclerosis. Laboratory Results WBC 6.67 10^3/uL (3.29-11.43) 05/30/25 11:27 RBC 3.39 10^6/uL (3.85-5.65) L 05/30/25 11:27 Hgb 9.80 g/dL (11.27-16.99) L 05/30/25 11:27 Hct 32.1 % (37-53) L 05/30/25 11:27 MCV 94.7 fl (82-101) 05/30/25 11:27 MCH 28.9 pg (27-33) 05/30/25 11:27 MCHC 30.5 g/dL (30-55) 05/30/25 11:27 RDW 15.2 % (12.1-15.1) H 05/30/25 11:27 Plt Count 191 10^3/cmm (157-399) 05/30/25 11:27 MPV 10.1 fL (7.4-10.4) 05/30/25 11:27 Neut % (Auto) 69.6 % 05/30/25 11:27 Lymph % (Auto) 15.3 % 05/30/25 11:27 Stevens % (Auto) 12.3 % 05/30/25 11:27 Eos % (Auto) 1.2 % 05/30/25 11:27 Baso % (Auto) 0.1 % 05/30/25 11:27 Neut # (Auto) 4.64 10^3/uL (1.8-7.7) 05/30/25 11:27 Lymph # (Auto) 1.0 10^3/uL (0.8-4.8) 05/30/25 11:27 Stevens # (Auto) 0.8 10^3/uL (0.2-0.9) 05/30/25 11:27 Eos # (Auto) 0.1 10^3/uL (0.0-0.8) 05/30/25 11:27 Baso # (Auto) 0.0 10^3/uL (0.0-0.1) 05/30/25 11:27 Nucleated RBC % (auto) 0 % 05/30/25 11:27 Nucleated RBCs # 0.0 /100WBC 05/30/25 11:27 Sodium 139 mmol/L (136-145) 05/30/25 11:27 Potassium 4.1 mmol/L (3.5-5.1) 05/30/25 11:27 Chloride 99 mmol/L (98-107) 05/30/25 11:27 Carbon Dioxide 29 mmol/L (22-29) 05/30/25 11:27 Anion Gap 15.1 (5-19) 05/30/25 11:27 BUN 11 mg/dL (8-23) 05/30/25 11:27 Creatinine 1.2 mg/dL (0.7-1.2) 05/30/25 11:27 GFR Calculation 60.6 mL/min (90-130) L 05/30/25 11:27 Glucose 97 mg/dL (65-115) 05/30/25 11:27 Calculated Osmolality 287 mOsm/kg (285-295) 05/30/25 11:27 Calcium 8.9 mg/dL (8.5-10.5) 05/30/25 11:27 Total Bilirubin 0.5 mg/dL (0.15-1.2) 05/30/25 11:27 AST 18 U/L (0-40) 05/30/25 11:27 ALT 26 U/L (0-41) 05/30/25 11:27 Alkaline Phosphatase 77 U/L (40-130) 05/30/25 11:27 Total Protein 7.1 g/dL (6.6-8.7) 05/30/25 11:27 Albumin 3.8 g/dL (3.5-5.2) 05/30/25 11:27 Globulin 3.3 g/dL (1.3-4.6) 05/30/25 11:27 Influenza A (PCR) Negative (Negative) 05/30/25 11:29 Influenza Type B (PCR) Negative (Negative) 05/30/25 11:29 RSV (PCR) Negative (Negative) 05/30/25 11:29 SARS-CoV-2 (PCR) Negative (Negative) 05/30/25 11:29 All radiology interpretation(s) finalized by discharge EKG Data EKG 1: I personally reviewed and interpreted this EKG as follows: Interpretation: [email or web address] EKG 1230 2025-04-08 rate of 83 MT interval 153 QTc 413 sinus rhythm. No acute ST changes noted no previous EKG available for comparison Discharge Plan Discharge Patient Disposition: Home Clinical Impression: Chronic neck pain, Hypertension, Acute exacerbation of chronic obstructive airways disease Condition: Stable Prescriptions: New prednisone 20 mg tablet 20 mg PO TID Qty: 15 0RF Rx Instructions: 1 p.o. 3 times daily x3 days, 1 p.o. twice daily x2 days, 1 p.o. daily x2 days doxycycline hyclate 100 mg capsule 100 mg PO BID 10 Days Qty: 20 0RF Discontinued prednisone 20 mg tablet 20 mg PO DAILY Qty: 15 0RF Rx Instructions: 60MG for 3 days 40MG for 2 days 20MG for 2 days prednisone 20 mg tablet 20 mg PO DAILY Qty: 15 0RF Rx Instructions: 60mg for three days 40mg for two days, 20mg for two days No Action lisinopril 40 mg tablet 40 mg PO DAILY amlodipine 10 mg tablet 10 mg PO DAILY alprazolam [Xanax] 1 mg tablet 1 mg PO TID PRN budesonide-formoterol [Symbicort] 80-4.5 mcg/actuation HFA aerosol inhaler 2 puff INHALATION BID albuterol sulfate 0.63 mg/3 mL solution for nebulization 0.63 mg INHALATION QID PRN triamcinolone acetonide 0.1 % ointment 1 applic TOPICAL BID Qty: 453.6 0RF Rx Instructions: Apply twice daily to raised closed areas on the arms and legs no more than 3 weeks/month mupirocin 2 % ointment 1 applic TOPICAL BID Qty: 22 2RF Rx Instructions: Apply twice daily to open areas on arms and legs until healed betamethasone dipropionate 0.05 % ointment 1 applic topical BID Qty: 45 2RF Rx Instructions: Apply twice daily to legs for 2 weeks alternating with triamcinolone mupirocin 2 % ointment 1 applic TOPICAL BID Qty: 22 3RF Discharge Orders: Discharge ED (Routine); Ordered 05/30/25 Ordered By: Medhat Portillo Referrals: Angelika Couch [Primary Care Provider, Family Practice] Discharge Diet: Usual diet Discharge Activity: Increase activity as tolerated Patient Instructions: Opioid Safety, Pain Management, Patient Portal & [place] Instructions Activity Restrictions/Additional Instructions: Thank you for choosing [facility] for your healthcare needs today. It is very important that you follow up as instructed or that you return to the Emergency Department should you have concerns or if your condition changes or worsens in any way. Emergency department visits are focused on emergent conditions, in some cases you may require further evaluation on an outpatient basis. You are seen in the emergency room with complaints of elevated blood pressure blood pressure did improve while you were here. You are noted to be have mild exacerbation of your COPD. Suggestive of possible early pneumonia on your chest x-ray. Recommend starting you on oral antibiotic 1 pill twice a day for 10 days additionally placed on a steroid taper continue to use your albuterol as needed. Recommend following up your primary care doctor regarding your blood pressure within a week. Return to the pain clinic for long-term management options of your chronic neck pain. (Please note that included in your discharge packet is information concerning opioid safety and pain management. This information is given to all patients were discharged from the ER regardless of their discharge diagnosis or the medicines they usually take or are prescribed.) Print Language: Divehi Coding Level of Care Code ED Web Services Professional for Jean Riggins
[2025-05-30 12:11] LABS: Respiratory Syncytial Virus Ce NEGATIVE (Negative); SARS-CoV-2 PCR NEGATIVE (Negative)
[2025-05-30] MEDS: HYDROcodone-acetaminophen 5-325 mg Tablet 1 TAB PO (12:18)
[2025-05-30] MEDS: methylPREDNISolone sod succ 125 mg/2 mL INJ IVP (12:18)
[2025-05-30 12:21] VITALS: BP 160/96; PULSE 88; O2SAT 94
[2025-05-30 12:52] VITALS: PULSE 84; RESP 18; O2SAT 93
[2025-05-30 13:51] VITALS: BP 160/82; PULSE 94; O2SAT 91
== END 2025-05-30 13:52 | disposition home or self-care (01) ==
PROVIDERS: Emergency Provider Family Medicine; PCP Nurse Practitioner Family
DX: M54.2 Cervicalgia (principal); I10 Essential (primary) hypertension; J44.1 Chronic obstructive pulmonary disease with (acute) exacerbation; Z11.52 Encounter for screening for COVID-19; Z72.0 Tobacco use
CPT/HCPCS: 36415; 71045; 80053; 85025; 87637; 93005; 94640; 96374; 99285; J2919; J9999